=== PATIENT | male | born 1980 | race African-American/Black ===

== ENCOUNTER 2021-01-25 06:32 | Emergency (ER) | payer OTHER ==
[~2021-01-25] VITALS: Ht 177.8 cm; Wt 82.0 kg
[2021-01-25] MEDS ORDERED: IBUPROFEN 600MG TABLET PO ONE (08:45)
[2021-01-25] MEDS ORDERED: ACETAMINOPHEN 325MG TABLET PO ONE (08:45)
[2021-01-25 09:13] VITALS: BP 120/75
[2021-01-25] MEDS ORDERED: IBUP-2029 MT (10:35)
== END 2021-01-25 10:54 | disposition home or self-care (01) ==
LOC: ER 06:51
DX: J02.8 Acute pharyngitis due to other specified organisms (principal); B20 Human immunodeficiency virus [HIV] disease; Z20.822 Contact with and (suspected) exposure to COVID-19
CPT/HCPCS: 87070; 87430; 99283; C9803; U0003; U0005

== ENCOUNTER 2021-01-29 14:22 | Emergency (ER) | payer OTHER ==
[~2021-01-29] VITALS: Ht 177.8 cm; Wt 82.0 kg
[~2021-01-29 14:22] MED LIST: IBUP-2029 MT
[2021-01-29] MEDS ORDERED: KETOROLAC 60MG/2ML VIAL IM ONE (17:30)
[2021-01-29] MEDS ORDERED: PHENOL/SODIUM PHENOLATE 1.4% SRPAY 177ML MM ONE (17:45)
[2021-01-29 18:05] VITALS: BP 108/69
[2021-01-29] MEDS ORDERED: BENZ1LOZ60 MT (18:15)
== END 2021-01-29 18:38 | disposition home or self-care (01) ==
LOC: ER 14:22
DX: J02.9 Acute pharyngitis, unspecified (principal); H92.01 Otalgia, right ear
CPT/HCPCS: 99282

== ENCOUNTER 2024-05-28 04:00 | Emergency (ER) | payer OTHER ==
[~2024-05-28] VITALS: Ht 177.8 cm; Wt 86.0 kg
[~2024-05-28 04:00] MED LIST changes: +BENZ1LOZ73 MT
[2024-05-28 04:09] VITALS: O2SAT 97
[2024-05-28] MEDS: KETOROLAC 30MG/ML VIAL IV STA (05:49)
[2024-05-28 06:06] LABS: CHLORIDE 106 mEq/L (98-107); SODIUM 138 mEq/L (136-145)
[2024-05-28 06:07] LABS: CALCIUM 9.1 mg/dL (8.7-10.4); CARBON DIOXIDE 25 mEq/L (21-32)
[2024-05-28 06:12] LABS: CREATININE 1.1 mg/dL (0.6-1.3); GLUCOSE 108 mg/dL (70-105); UREA NITROGEN BLOOD 12 mg/dL (9-23)
[2024-05-28] MEDS ORDERED: IOHEXOL-300 100 ML BOTTLE ONE (07:08)
[2024-05-28] MEDS ORDERED: AMPICILLIN SOD/SULBACTAM NA 3 G in SODIUM CHLORIDE 0.9% 100 ML IV STA (07:24)
[2024-05-28 07:27] LABS: BASOPHILS % 0.1 % (0.0-2.0); HEMATOCRIT. 32.2 % (42.0-52.0); LYMPHOCYTES % 13.8 % (20.0-50.0); MEAN CORPUSCULAR HGB CONC 34.3 g/dL (31.0-37.0); MEAN CORPUSCULAR VOLUME 81.7 fL (80.0-94.0); MEAN PLATELET VOLUME 8.4 fl (7.4-10.4); MONOCYTES % 10.2 % (2.0-8.0); NEUTROPHILS % 75.9 % (40.0-76.0); PLATELET 216 x1000/uL (130-400); RED BLOOD CELL COUNT 3.95 mill/uL (4.7-6.1); RED CELL DISTRIBUTION WIDTH 13.5 % (11.6-14.6); WHITE BLOOD COUNT 17.7 x1000/uL (4.5-11.0)
[2024-05-28] MEDS ORDERED: AMOX1TAB16 MT (07:42)
[2024-05-28] MEDS ORDERED: IBUP-2029 MT (07:43)
[2024-05-28 07:56] VITALS: BP 110/70; PULSE 85; RESP 15; TEMP 37.00296; O2SAT 100
[2024-05-30] MEDS ORDERED: BICT1TAB PO (05:23)
== END 2024-05-28 08:07 | disposition home or self-care (01) ==
LOC: ER 04:06
DX: J02.9 Acute pharyngitis, unspecified (principal); R59.9 Enlarged lymph nodes, unspecified; F17.200 Nicotine dependence, unspecified, uncomplicated
CPT/HCPCS: 80048; 85025; 36415; 70491; 96374; 99285; Q9967; J1885; Z7610; J0295; J7050